=== PATIENT | male | born 1960 | race Caucasian/White ===

== ENCOUNTER 2022-12-03 07:14 | Emergency (ER) | payer OTHER ==
[~2022-12-03] VITALS: Ht 182.9 cm; Wt 90.7 kg
[2022-12-03] MEDS ORDERED: AZIT250 PO (07:45)
[2022-12-03] MEDS ORDERED: PRED20 PO (07:45)
== END 2022-12-03 08:12 | disposition home or self-care (01) ==
LOC: ER 07:14
DX: J02.9 Acute pharyngitis, unspecified (principal); J03.90 Acute tonsillitis, unspecified; Z88.0 Allergy status to penicillin
CPT/HCPCS: 87081; 87430; J1100

== ENCOUNTER → 2024-09-02 | Outpatient (CLI) | payer OTHER ==
[~2024-09-02] MED LIST: AZIT250 PO; PRED20 PO
== END | disposition home or self-care (01) ==
LOC: LAB 10:50 → LAB SHORT 10:50
DX: B37.2 Candidiasis of skin and nail (principal)
CPT/HCPCS: 87071; 87075; 87205